=== PATIENT | female | born 1960 | race Caucasian/White ===

== ENCOUNTER 2019-05-24 21:18 | Emergency (ER) | payer SELFPAY ==
[~2019-05-24] VITALS: Ht 152.4 cm; Wt 54.0 kg
[2019-05-24 21:22] VITALS: BP 166/76; PULSE 80; RESP 20; Ht 152.4 cm; Wt 54.0 kg
[2019-05-24] MEDS ORDERED: ACETAMINOPHEN 325 MG TAB PO ONE (22:00)
[2019-05-24] MEDS ORDERED: IBUP800T48 PO (23:13)
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
== END 2019-05-24 23:43 | disposition home or self-care (01) ==
LOC: FTE 21:18
DX: S62.617A Displaced fracture of proximal phalanx of left little finger, initial encounter for closed fracture (principal); W18.39XA Other fall on same level, initial encounter; Y92.832 Beach as the place of occurrence of the external cause